=== PATIENT | female | born 1990 | race Caucasian/White ===

== ENCOUNTER 2016-07-15 15:36 | Emergency (ER) | payer OTHER | END 2016-07-15 18:28 | disposition home or self-care (01) | LOC: ER1 15:36 | DX: S49.92XA Unspecified injury of left shoulder and upper arm, initial encounter (principal); S29.011A Strain of muscle and tendon of front wall of thorax, initial encounter; S39.012A Strain of muscle, fascia and tendon of lower back, initial encounter; S96.912A Strain of unspecified muscle and tendon at ankle and foot level, left foot, initial encounter; V49.40XA Driver injured in collision with unspecified motor vehicles in traffic accident, initial encounter | CPT/HCPCS: 71020; 72100; 73630; 84703; 99284 ==

== ENCOUNTER → 2020-04-12 | Outpatient (CLI) | payer OTHER | LOC: HEART 5 10:15 | DX: R06.02 Shortness of breath (principal) | CPT/HCPCS: 94010 ==